=== PATIENT | female | born 1990 | race Asian ===

== ENCOUNTER 2018-08-03 13:01 | Inpatient (IN) | payer OTHER ==
[2018-08-03] MEDS ORDERED: PROMETHAZINE HCL 25 MG/1 ML VIAL IVPUSH ONE (13:02)
[2018-08-03] MEDS ORDERED: ELECTROLYTE-148 SOLN 1,000 ML IV SCH (13:15)
[2018-08-03] MEDS ORDERED: BUTORPHANOL TARTRATE 1 MG/ML VIAL IVPB ONE (13:30)
[2018-08-03 13:39] VITALS: BMI 29.2
[2018-08-03] MEDS ORDERED: LIDOCAINE HCL 1% PRESERVATIVE FREE - 30ML VIAL ONE (13:47)
[2018-08-03] MEDS ORDERED: OXYTOCIN 20 UNITS in 0.9% NS 20 UNIT/1,000 ML INFUS.BAG IV ONE ×2 (13:47→16:20)
[2018-08-03] MEDS ORDERED: TUBERCULIN PPD 5 TU/0.1ML SYRINGE (IN PATIENT USE ONLY) ID ONE (14:00)
[2018-08-03 14:09] LABS: BASO % 0.5 % (0-2.0); EOS % 0.5 % (0-4.5); HEMATOCRIT 39.2 % (32.4-45.2); HEMOGLOBIN 13.4 GM/dL (10.7-15.3); LYMPH % 22.8 % (8-40); MCHC 34.1 g/dl (32.0-36.0); MEAN PLT VOLUME 9.2 fl (7.5-11.1); NEUT % 67.2 % (42.8-82.8); PLATELET COUNT 264 K/MM3 (134-434); RBC 4.31 M/mm3 (3.60-5.2); RDW 13.8 % (11.6-15.6); WHITE BLOOD COUNT 8.6 K/mm3 (4.0-10.0)
[2018-08-03 14:22] LABS: ANION GAP 8 MMOL/L (8-16); BLOOD UREA NITROGEN 11 mg/dL (7-18); CALCIUM 9.3 mg/dL (8.5-10.1); CHLORIDE 104 mmol/L (98-107); CO2 24 mmol/L (21-32); CREATININE 0.6 mg/dL (0.55-1.3); GLUCOSE,RANDOM 105 mg/dL (74-106); SODIUM 137 mmol/L (136-145)
--- NOTE | 2018-08-03 14:33 | HP ---
Past Medical History - Admission Chief Complaint: Pt with cramps, was 6cm in office, sent to L&D History of Present Illness: 28 y/o P0 female with SIUP at 38.5 weeks, in labor. complicated by elevated glucose screen, otherwise WNL. Pt 6cm dilated in office. +FM no VB/ LOF. - Past Medical History Cardiovascular: No: HTN Pulmonary: No: Asthma, COPD Gastrointestinal: No: Constipation, GERD Renal/: No: UTI ...: 2 ...Para: 1 ...Term: 1 ...LMP: 11/05/17 ... Weeks Gestation by Dates: 38.5 ...EDC by Dates: 08/12/18 ...EDC by Sono: 08/12/18 Heme/Onc: No: Anemia Psych: No: Anxiety, Bipolar, Depression - Past Surgical History Past Surgical History: Yes: None Hx Myomectomy: No Hx Transabdominal Cerclage: No - Smoking History Smoking history: Never smoked Have you smoked in the past 12 months: No - Alcohol/Substance Use Hx Alcohol Use: No History of Substance Use: reports: None - Social History History of Recent Travel: No Home Medications - Allergies Allergies/Adverse Reactions: Allergies Allergy/AdvReac Type Severity Reaction Status Date / Time No Known Allergies Allergy Verified 08/03/18 13:43 - Home Medications Home Medications: Ambulatory Orders Pnv No.95/Ferrous Fum/Folic AC [ Vitamin Tablet] 1 each PO DAILY Ibuprofen [Motrin -] 600 mg PO QID PRN #28 tablet 05/13/16 Review of Systems - Review of Systems Constitutional: reports: No Symptoms Eyes: reports: No Symptoms HENT: reports: No Symptoms Neck: reports: No Symptoms Cardiovascular: reports: No Symptoms Respiratory: reports: No Symptoms Gastrointestinal: reports: Abdominal Pain (contractions/cramping) Genitourinary: reports: No Symptoms Breasts: reports: No Symptoms Reported Musculoskeletal: reports: No Symptoms Integumentary: reports: No Symptoms Neurological: reports: No Symptoms Endocrine: reports: No Symptoms Hematology/Lymphatic: reports: No Symptoms Psychiatric: reports: No Symptoms Physical Exam - Maternity Vital Signs: Vital Signs Temperature 98.2 F 08/03/18 13:31 Pulse Rate 74 08/03/18 13:31 Respiratory Rate 18 08/03/18 13:31 Blood Pressure 121/65 08/03/18 13:31 O2 Sat by Pulse Oximetry (%) Constitutional: Yes: Well Nourished, Calm Eyes: Yes: Conjunctiva Clear, EOM Intact HENT: Yes: Atraumatic, Normocephalic Neck: Yes: Supple, Trachea Midline Cardiovascular: Yes: Regular Rate and Rhythm Lungs: Clear to auscultation Breast(s): Yes: WNL - Abdominal Exam/OB Number of Fetuses: Single Presentation: Vertex Contractions: Yes Regularity: Regular Intensity: Mild/Mod Category: I Accelerations: Uniform Decelerations: None - Vaginal Exam/OB Vaginal Bleediing: Yes (bloody show) Dilatation (cm): 9 Effacement (%): 90 Amniotic Membrane Status: Ruptured (AROM for clear fluid) Presentation: Vertex/Position Station: 0 - Physical Exam Psychiatric: Yes: Alert, Oriented - Labs Lab Results: CBC, BMP 08/03/18 13:52 08/03/18 13:52 Hemorrhage Risk Assessment - Risk Factors Medium Risk Factors: Yes: None High Risk Factors: Yes: None Risk Score: 1 Risk Level: Medium Risk Problem List - Problems (1) Active labor at term Code(s): [id number] - Assessment/Plan 28 y/o with SIUP at 38.5, labor admitted to L&D s/p AROM anticipate
[2018-08-03 14:34] LABS: INR 0.88 (0.83-1.09); PROTHROMBIN TIME (PATIENT) 10.4 SEC (9.7-13.0)
[2018-08-03 14:36] LABS: ACTIVATED PTT 26.5 SECONDS (25.2-36.5)
[2018-08-03] MEDS ORDERED: BENZOCAINE 20% 57 GM BOTTLE TP PRN (15:02)
[2018-08-03] MEDS ORDERED: WITCH HAZEL 50% (TUCKS) 40 PAD/JAR PAD TP PRN (15:02)
[2018-08-03] MEDS ORDERED: BISACODYL 10 MG SUPP.RECT RC PRN (15:02)
[2018-08-03] MEDS ORDERED: METHYLERGONOVINE MALEATE 0.2 MG/1 ML AMP IM PRN (15:02)
[2018-08-03] MEDS ORDERED: ACETAMINOPHEN 325 MG TABLET (FP) PO PRN (15:02)
[2018-08-03] MEDS ORDERED: BENZOCAINE 28 GM HEMORRHOIDAL OINTMENT TP PRN (15:02)
--- NOTE | 2018-08-03 15:08 | PN ---
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
[2018-08-03] MEDS ORDERED: OXYTOCIN 20 UNITS in 0.9% NS 20 UNIT/1,000 ML INFUS.BAG IV SCH (15:15)
[2018-08-03] MEDS: IBUPROFEN 600 MG TABLET (FP) PO PRN (23:59)
[2018-08-04 07:22] LABS: BASO % 0.5 % (0-2.0); EOS % 0.6 % (0-4.5); HEMATOCRIT 32.1 % (32.4-45.2); LYMPH % 21.3 % (8-40); MCH 31.5 pg (25.7-33.7); MCHC 34.4 g/dl (32.0-36.0); MEAN CELL VOLUME 91.6 fl (80-96); MEAN PLT VOLUME 9.5 fl (7.5-11.1); MONO % 8.1 % (3.8-10.2); NEUT % 69.5 % (42.8-82.8); PLATELET COUNT 216 K/MM3 (134-434); RDW 13.9 % (11.6-15.6); WHITE BLOOD COUNT 10.7 K/mm3 (4.0-10.0)
[2018-08-04] MEDS: IBUPROFEN 600 MG TABLET (FP) PO PRN (08:50)
[2018-08-04] MEDS: PRENATAL VITAMINS W/ FOLIC ACID TABLET (FP) PO SCH (09:43)
--- NOTE | 2018-08-04 20:51 | PN ---
Post Progress Note - Subjective Subjective: Pt seen/evaluated. Doing well. Pain controlled. VB minimal. Tolerating regular diet. Ambulating, voiding, passing flatus. Type of Delivery: Vital Signs: Vital Signs Temperature 98 F 08/04/18 14:45 Pulse Rate 89 08/04/18 14:45 Respiratory Rate 18 08/04/18 14:45 Blood Pressure 112/66 08/04/18 14:45 O2 Sat by Pulse Oximetry (%) Uterus: Yes: Fundus Firm Abdomen/GI: Yes: Abdomen soft, Tolerating PO Lochia: Yes: Rubra Lochia, amount: Small Extremities: Yes: Calves non-tender. No: Edema Perineum: Yes: Intact Activity: Ambulating - Labs Labs: CBC WBC 10.7 K/mm3 (4.0-10.0) H 08/04/18 06:54 RBC 3.50 M/mm3 (3.60-5.2) L 08/04/18 06:54 Hgb 11.0 GM/dL (10.7-15.3) 08/04/18 06:54 Hct 32.1 % (32.4-45.2) L D 08/04/18 06:54 MCV 91.6 fl (80-96) 08/04/18 06:54 MCH 31.5 pg (25.7-33.7) 08/04/18 06:54 MCHC 34.4 g/dl (32.0-36.0) 08/04/18 06:54 RDW 13.9 % (11.6-15.6) 08/04/18 06:54 Plt Count 216 K/MM3 (134-434) 08/04/18 06:54 MPV 9.5 fl (7.5-11.1) 08/04/18 06:54 Absolute Neuts (auto) 7.4 K/mm3 (1.5-8.0) 08/04/18 06:54 Neutrophils % 69.5 % (42.8-82.8) 08/04/18 06:54 Lymphocytes % 21.3 % (8-40) 08/04/18 06:54 Monocytes % 8.1 % (3.8-10.2) 08/04/18 06:54 Eosinophils % 0.6 % (0-4.5) 08/04/18 06:54 Basophils % 0.5 % (0-2.0) 08/04/18 06:54 Nucleated RBC % 0 % (0-0) 08/04/18 06:54 Problem List - Problems (1) Active labor at term Code(s): NDF5790 - (2) Status post normal vaginal delivery Code(s): KSZ2105 - Assessment/Plan regular diet PO pain meds ambulation routine care
--- NOTE | 2018-08-04 20:53 | DS ---
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: Vital Signs Temperature 98 F 08/04/18 14:45 Pulse Rate 89 08/04/18 14:45 Respiratory Rate 18 08/04/18 14:45 Blood Pressure 112/66 08/04/18 14:45 O2 Sat by Pulse Oximetry (%) Constitutional: Yes: Well Nourished, No Distress, Calm Eyes: Yes: EOM Intact, Ptosis Neck: Yes: Supple Cardiovascular: Yes: Regular Rate and Rhythm Respiratory: Yes: Regular, CTA Bilaterally Gastrointestinal: Yes: Normal Bowel Sounds, Soft Vaginal Exam: Yes: Bleeding (normal post bleeding/lochia rubra) ....Post : Yes: Uterus firm, Uterus non-tender Musculoskeletal: Yes: WNL Extremities: Yes: WNL Neurological: Yes: Alert, Oriented Psychiatric: Yes: Alert, Oriented Labs: CBC, BMP 08/04/18 06:54 08/03/18 13:52 Delivery - Delivery Vaginal Delivery: No Problems Type of Anesthesia: None Episiotomy/Laceration: None EBL (cc): 300 Delivery, Single - Stages of Labor Date 1st Stage Initiatied: 08/03/18 Time 1st Stage Initiated: 11:00 Date 2nd Stage Initiated: 08/03/18 Time 2nd Stage Initiated: 14:35 Date of Delivery: 08/03/18 Time of Delivery: 14:53 Time Placenta Delivered: 14:57 Placenta: Yes: Spontaneous - 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 Pt discharged home on post day 2. Condition: Good - Instructions Disposition: HOME - Home Medications Comprehensive Discharge Medication List: Ambulatory Orders Pnv No.95/Ferrous Fum/Folic AC [ Vitamin Tablet] 1 each PO DAILY Ibuprofen [Motrin -] 600 mg PO QID PRN #28 tablet 05/13/16
[2018-08-04] MEDS ORDERED: SENNOSIDES/DOCUSATE COMBO (SENNA PLUS) TABLET (UD) PO PRN (22:00)
[2018-08-05 08:39] VITALS: BP 105/63; PULSE 73; TEMP 98.3
[2018-08-05] MEDS: PRENATAL VITAMINS W/ FOLIC ACID TABLET (FP) PO SCH (09:14)
== END 2018-08-05 10:05 | disposition home or self-care (01) | DRG 560 ==
LOC: JLDR 13:01 → J3W 16:30
PROVIDERS: ADMIT Obstetrics & Gynecology; ATTEND Obstetrics & Gynecology
PROC: 10E0XZZ Delivery of Products of Conception, External Approach (ICD-10-PCS; principal; 2018-08-03)
PROC: 10907ZC Drainage of Amniotic Fluid, Therapeutic from Products of Conception, Via Natural or Artificial Opening (ICD-10-PCS; 2018-08-03)
DX: O80 Encounter for full-term uncomplicated delivery (principal); Z3A.38 38 weeks gestation of pregnancy; Z37.0 Single live birth
CPT/HCPCS: 36415; 59409; 80048; 85025; 85610; 85730; 86593; 86850; 86900; 86901